=== PATIENT | female | born 1980 ===

== ENCOUNTER 2017-07-05 16:08 | Emergency (ER) | payer OTHER ==
[2017-07-05] MEDS ORDERED: Dexamethasone 4 mg/1 ml IM STA (17:07)
[2017-07-05] MEDS ORDERED: Dexamethasone 4 mg/1 ml ONE (17:17)
--- NOTE | 2017-07-05 17:21 | C.PDOC ---
History Of Present Illness 37 year old female presents to the ED with back pain for a week. Patient states she has had no recent injuries or falls, but has a herniated disk. Associated symptoms are radiating pain down to the right leg. She denies any weakness, numbness, tingling, bowel or bladder dysfunction. Time Seen by Provider: 07/05/17 16:38 Chief Complaint (Nursing): Back Pain History Per: Patient Onset/Duration Of Symptoms: Days (1 Month), Persistent, Other (Radiating) Current Symptoms Are (Timing): Still Present Quality Of Discomfort: Aching Previous Symptoms: Back Pain Associated Symptoms: None. denies: Incontinence, New Weakness, New Numbness Exacerbating Factor(s): Movement, Sitting Recent travel outside of the [place]: No Past Medical History Reviewed: Historical Data, Nursing Documentation, Vital Signs Vital Signs: Last Vital Signs Temp 97.6 F 07/05/17 19:58 Pulse 87 07/05/17 19:58 Resp 16 07/05/17 19:58 BP 117/82 07/05/17 19:58 Pulse Ox 97 07/05/17 19:58 - Medical History PMH: No Chronic Diseases Surgical History: Cholecystectomy Family History: States: No Known Family Hx - Social History Hx Alcohol Use: No Hx Substance Use: No - Immunization History Hx Tetanus Toxoid Vaccination: No Hx Influenza Vaccination: No Review Of Systems Except As Marked, All Systems Reviewed And Found Negative. Genitourinary: Negative for: Dysuria, Incontinence, Hematuria Musculoskeletal: Positive for: Back Pain Neurological: Negative for: Weakness, Numbness Physical Exam - Physical Exam Appears: Non-toxic Skin: Normal Color, Warm, Dry, No Rash Head: Atraumatic, Normacephalic Eye(s): bilateral: Normal Inspection, PERRL, EOMI Ear(s): Bilateral: Normal Oral Mucosa: Moist Throat: No Erythema, No Exudate Neck: Normal ROM, Supple Chest: Symmetrical Cardiovascular: Rhythm Regular, No Friction Rub, No Murmur Respiratory: Normal Breath Sounds, No Wheezing Gastrointestinal/Abdominal: Normal Exam, Soft, No Tenderness Back: No CVA Tenderness, No Vertebral Tenderness, Paraspinal Tenderness ( bilateral) Extremity: Normal ROM, No Pedal Edema, No Deformity, No Swelling Neurological/Psych: Oriented x3, Normal Motor, Normal Sensation Gait: Steady ED Course And Treatment O2 Sat by Pulse Oximetry: 100 (RA) Pulse Ox Interpretation: Normal Medical Decision Making Medical Decision Making: IMPRESSION: Back Pain -- XR-- Lumber Spine --POC- Urine --Dexamethasone 8mg On re-exam, the patient reports improvement of symptoms. Lungs are CTA, heart is RRR, abdomen is soft, non-tender and tolerating Po well. Ambulatory in the ED with steady gait. Disposition - Disposition Referrals: [facility] [Outside] Disposition: HOME/ ROUTINE Disposition Time: 19:32 Condition: GOOD Additional Instructions: Follow up with the medical doctor within 1-2 days. Return if worsened Prescriptions: Cyclobenzaprine [Flexeril] 5 mg PO TID #21 tab Lidocaine 5% [Lidoderm] 1 each TP DAILY #10 patch Naproxen [Naprosyn] 500 mg PO BID #20 tab Instructions: Radiculopathy Forms: [employer] (Kyrgyz) Print Language: NAMIBIAN - Clinical Impression Clinical Impression: Low back pain - PA / INVENTORY AND PRICING ASSOCIATE / Resident Statement MD/DO has reviewed & agrees with the documentation as recorded. - Scribe Statement The provider has reviewed the documentation as recorded by the Scribe All medical record entries made by the Scribe were at my direction and personally dictated by me. I have reviewed the chart and agree that the record accurately reflects my personal performance of the history, physical exam, medical decision making, and the department course for this patient. I have also personally directed, reviewed, and agree with the discharge instructions and disposition.
[2017-07-05 19:59] VITALS: BP 117/82; PULSE 87; RESP 16; TEMP 97.6
--- NOTE | 2017-07-06 08:28 | RAD ---
PROCEDURE: Radiographs of the Lumbar Spine. HISTORY: Low back pain COMPARISON: No prior. FINDINGS: BONES: Normal alignment. No listhesis. No fracture. DISC SPACES: Unremarkable. OTHER FINDINGS: None. IMPRESSION: Unremarkable radiographs of the lumbar spine.
[2017-07-06 22:21] VITALS: O2SAT 100
== END 2017-07-05 19:57 | disposition home or self-care (01) ==
LOC: C.ER 16:08
DX: M54.5 Low back pain (principal)
CPT/HCPCS: 72100; 96372; 99284; J1100; J1885

== ENCOUNTER 2018-03-21 19:03 | Emergency (ER) | payer OTHER ==
[2018-03-21 21:00] LABS: HCG,QUALITATIVE URINE NEGATIVE (NEGATIVE)
[2018-03-21 21:04] LABS: SQUAMOUS EPITHIAL 29 /hpf (0-5); URINE BACTERIA FEW (<OCC); URINE BILIRUBIN NEGATIVE (NEGATIVE); URINE BLOOD 1+ (NEGATIVE); URINE CLARITY Hazy (Clear); URINE COLOR Amber (YELLOW); URINE GLUCOSE (UA) NORMAL (Normal); URINE LEUKOCYTE ESTERASE 2+ Leu/uL (Negative); URINE PROTEIN 2+ mg/dL (NEGATIVE)
--- NOTE | 2018-03-21 21:26 | C.PDOC ---
History Of Present Illness 38 y/o female presents c/o Fever and vomiting x 10 for the past 2 days. She has taken Advil with not much relief. She has associated mayalgia mainly in the lower back and headache. She denies diarrhea, cough, and chest pain. She denies sick contacts. She admits to increase frequency of urination and dysuria. <Yousif Mccoy - Last Filed: 03/21/18 23:31> History Per: Patient Onset/Duration Of Symptoms: Persistent Current Symptoms Are (Timing): Still Present Location Of Pain: Other (Back) Sick Contacts (Context): None Associated Symptoms: Myalgias, Vomiting Severity: Moderate Pain Scale Rating Of: 7 Recent travel outside of the [place]: No <Yousif Mccoy - Last Filed: 03/21/18 23:31> <Andrea Alanis DO - Last Filed: 03/22/18 00:25> Time Seen by Provider: 03/21/18 20:51 Chief Complaint (Nursing): Fever Past Medical History Reviewed: Historical Data, Nursing Documentation, Vital Signs Vital Signs: Last Vital Signs Temp 102.7 F H 03/21/18 19:25 Pulse 117 H 03/21/18 19:25 Resp 24 03/21/18 19:25 BP 116/78 03/21/18 19:25 Pulse Ox 100 03/21/18 19:25 - Medical History PMH: No Chronic Diseases Surgical History: Cholecystectomy, Family History: States: No Known Family Hx - Social History Hx Alcohol Use: No Hx Substance Use: No - Immunization History Hx Tetanus Toxoid Vaccination: No Hx Influenza Vaccination: No <Yousif Mccoy - Last Filed: 03/21/18 23:31> Vital Signs: Last Vital Signs Temp 98.8 F 03/21/18 23:46 Pulse 92 H 03/21/18 23:46 Resp 16 03/21/18 23:46 BP 108/62 03/21/18 23:46 Pulse Ox 100 03/22/18 00:01 <Andrea Alanis DO - Last Filed: 03/22/18 00:25> Review Of Systems Except As Marked, All Systems Reviewed And Found Negative. Constitutional: Positive for: Fever, Malaise. Negative for: Chills Cardiovascular: Negative for: Chest Pain Respiratory: Negative for: Cough Gastrointestinal: Positive for: Nausea, Vomiting Genitourinary: Positive for: Dysuria, Frequency, Pelvic Pain Musculoskeletal: Positive for: Back Pain <Yousif Mccoy - Last Filed: 03/21/18 23:31> Physical Exam - Physical Exam Appears: Non-toxic, No Acute Distress Skin: Normal Color, Warm Head: Atraumatic, Normacephalic, Tenderness Eye(s): bilateral: Normal Inspection Ear(s): Bilateral: Normal Nose: Normal Throat: Normal, No Erythema Neck: Normal, Supple Lymphatic: Adenopathy Cardiovascular: Rhythm Regular Respiratory: Normal Breath Sounds Gastrointestinal/Abdominal: Soft, No Guarding Back: CVA Tenderness (L>R) <Yousif Mccoy - Last Filed: 03/21/18 23:31> ED Course And Treatment - Laboratory Results Result Diagrams: 03/21/18 21:32 03/21/18 21:32 Lab Results: Urine Color Kiley (YELLOW) 03/21/18 20:41 Urine Clarity Hazy (Clear) 03/21/18 20:41 Urine pH 6.0 (5.0-8.0) 03/21/18 20:41 Ur Specific [place] 1.020 (1.003-1.030) 03/21/18 20:41 Urine Protein 2+ mg/dL (NEGATIVE) H 03/21/18 20:41 Urine Glucose (UA) Normal mg/dL (Normal) 03/21/18 20:41 Urine Ketones 1+ mg/dL (NEGATIVE) H 03/21/18 20:41 Urine Blood 1+ (NEGATIVE) H 03/21/18 20:41 Urine Nitrate Positive (NEGATIVE) H 03/21/18 20:41 Urine Bilirubin Negative (NEGATIVE) 03/21/18 20:41 Urine Urobilinogen 2.0 mg/dL (0.2-1.0) H 03/21/18 20:41 Ur Leukocyte Esterase 2+ Bisi/uL (Negative) H 03/21/18 20:41 Urine WBC (Auto) 257 /hpf (0-5) H 03/21/18 20:41 Urine RBC (Auto) 8 /hpf (0-3) H 03/21/18 20:41 Ur Squamous Epith Cells 29 /hpf (0-5) H 03/21/18 20:41 Urine Bacteria Few (<OCC) H 03/21/18 20:41 Urine HCG, Qual Negative (NEGATIVE) 03/21/18 20:41 Urine HCG, Qual Negative (NEGATIVE) 03/21/18 20:41 Urine POC: Negative O2 Sat by Pulse Oximetry: 100 Progress Note: Tylenol given at Triage due to temp of 102; IV hydration; Toradol given; Labs reviewed- high WBC 14.3; Urinalysis revealed high WBC count 257; CT abdomen and pelvis scan ordered revealing cystitis and pyelonephritis Reevaluation Time: 22:07 (temp 99.0 F; patient pain has improved) Reassessment Condition: Improved <NadineYousif - Last Filed: 03/21/18 23:31> - Laboratory Results Result Diagrams: 03/21/18 21:32 03/21/18 21:32 Lab Results: Total Bilirubin 1.3 mg/dL (0.2-1.3) 03/21/18 21:32 AST 37 U/L (14-36) H D 03/21/18 21:32 ALT 43 U/L (9-52) 03/21/18 21:32 Alkaline Phosphatase 78 U/L (38-126) 03/21/18 21:32 Total Protein 7.8 g/dL (6.3-8.3) 03/21/18 21:32 Albumin 4.4 g/dL (3.5-5.0) 03/21/18 21:32 Globulin 3.4 gm/dL (2.2-3.9) 03/21/18 21:32 Albumin/Globulin Ratio 1.3 (1.0-2.1) 03/21/18 21:32 Urine Color Kiley (YELLOW) 03/21/18 20:41 Urine Clarity Hazy (Clear) 03/21/18 20:41 Urine pH 6.0 (5.0-8.0) 03/21/18 20:41 Ur Specific [place] 1.020 (1.003-1.030) 03/21/18 20:41 Urine Protein 2+ mg/dL (NEGATIVE) H 03/21/18 20:41 Urine Glucose (UA) Normal mg/dL (Normal) 03/21/18 20:41 Urine Ketones 1+ mg/dL (NEGATIVE) H 03/21/18 20:41 Urine Blood 1+ (NEGATIVE) H 03/21/18 20:41 Urine Nitrate Positive (NEGATIVE) H 03/21/18 20:41 Urine Bilirubin Negative (NEGATIVE) 03/21/18 20:41 Urine Urobilinogen 2.0 mg/dL (0.2-1.0) H 03/21/18 20:41 Ur Leukocyte Esterase 2+ Bisi/uL (Negative) H 03/21/18 20:41 Urine WBC (Auto) 257 /hpf (0-5) H 03/21/18 20:41 Urine RBC (Auto) 8 /hpf (0-3) H 03/21/18 20:41 Ur Squamous Epith Cells 29 /hpf (0-5) H 03/21/18 20:41 Urine Bacteria Few (<OCC) H 03/21/18 20:41 Urine HCG, Qual Negative (NEGATIVE) 03/21/18 20:41 Urine HCG, Qual Negative (NEGATIVE) 03/21/18 20:41 <Andrea Alanis DO - Last Filed: 03/22/18 00:25> Medical Decision Making Medical Decision Making: A/P: Cysitis and Pyelonephritis -start Cipro 500mg BID x 14 days - start Zofran - continue Advil PRN fever <Yousif Mccoy - Last Filed: 03/21/18 23:31> Disposition <Yousif Mccoy - Last Filed: 03/21/18 23:31> - Disposition Disposition Time: 23:00 <Andrea Alanis DO - Last Filed: 03/22/18 00:25> - Disposition Referrals: [facility] [Outside] [facility] [Outside] Disposition: HOME/ ROUTINE Condition: IMPROVED Additional Instructions: JESSI JOHN, thank you for letting us take care of you today. The emergency medical care you received today was directed at your acute symptoms. If you were prescribed any medication, please fill it and take as directed. It may take several days for your symptoms to resolve. Return to the Emergency D epartment if your symptoms worsen, do not improve, or if you have any other problems. Please contact your doctor or call one of the physicians/clinics you have been referred to that are listed on the Patient Visit Information form that is included in your discharge packet. Bring any paperwork you were given at discharge with you along with any medications you are taking to your follow up visit. Our treatment cannot replace ongoing medical care by a primary care provider outside of the emergency department. Thank you for allowing the [facility] team to be part of your care today. Follow up with our clinic in 5-7 days for re-evaluation and further management. Prescriptions: Ciprofloxacin [Cipro] 500 mg PO BID #28 tab Ibuprofen [Motrin] 600 mg PO Q6 PRN #20 tab PRN Reason: Pain, Moderate (4-7) Ondansetron ODT [Zofran ODT] 4 mg PO Q8 PRN #20 odt PRN Reason: Nausea/Vomiting Instructions: Kidney Infection (DC) Forms: [employer] - It's what's in store (Korean) - Clinical Impression Clinical Impression: Pyelonephritis
[2018-03-21] MEDS ORDERED: Sodium Chloride 0.9% 1,000 ML IV ONE (21:30)
[2018-03-21 21:35] LABS: BASO % 0.3 % (0.0-2.0); HEMOGLOBIN 13.1 g/dL (11.0-16.0); LYMPH # 0.9 K/uL (1.0-4.3); LYMPH % 6.6 % (20.0-40.0); MEAN CELL VOLUME 87.2 fL (81.0-99.0); MEAN CORPUSCULAR HEMOGLOBIN 29.1 pg (27.0-31.0); MEAN CORPUSCULAR HGB CONC 33.4 g/dL (33.0-37.0); MONO # 1.2 K/uL (0.0-0.8); MONO % 8.7 % (0.0-10.0); NEUT # 12.1 K/uL (1.8-7.0); NEUT % 84.4 % (50.0-75.0); PLATELET COUNT 315 K/uL (130-400); RBC 4.49 Mil/uL (3.80-5.20); RED CELL DISTRIBUTION WIDTH 12.4 % (11.5-14.5); WHITE BLOOD COUNT 14.3 K/uL (4.8-10.8)
[2018-03-21 21:47] LABS: ALB/GLOB RATIO 1.3 (1.0-2.1); ALBUMIN 4.4 g/dL (3.5-5.0); ALT/SGPT 43 U/L (9-52); AST/SGOT 37 U/L (14-36); BLOOD UREA NITROGEN 14 mg/dL (7-17); CALCIUM 8.7 mg/dl (8.6-10.4); GFR NON-AFRICAN AMERICAN > 60
[2018-03-21] MEDS ORDERED: Sodium Chloride 0.9% 1,000 ML ONE (21:48)
[2018-03-21 21:53] VITALS: RESP 16
[2018-03-21] MEDS ORDERED: Iodixanol 320 MG/ML 100 ML BOTTLE IV ONE (22:04)
[2018-03-21 22:19] LABS: BANDS 1 % (0-2); LYMPHOCYTE 7 % (20-40); MONOCYTE 5 % (0-10); NEUTROPHIL 87 % (50-75); PLATELET ESTIMATE NORMAL (NORMAL); TOTAL CELLS COUNTED 100
[2018-03-21 23:47] VITALS: BP 108/62; PULSE 92; TEMP 98.8
[2018-03-21 23:48] VITALS: O2SAT 100
--- NOTE | 2018-03-22 07:27 | CT ---
CT abdomen and pelvis HISTORY: Abdominal pain. Left flank pain. COMPARISON: None available. TECHNIQUE: Multiple contiguous axial images were performed through the abdomen and pelvis with the use of intravenous contrast. Subsequently, sagittal and coronal reformatted images were obtained. FINDINGS: Emphysematous bleb seen within the lateral aspect of the right lobe measuring 1.6 centimeters on series 3, image 9. Atelectasis at the lung bases. No pleural or pericardial effusion. Liver is preserved. Contracted and or resected gallbladder. Spleen is preserved. Adrenal glands are preserved. Pancreas is preserved. Upper abdominal bowel is preserved. Right kidney: No calculi or hydronephrosis. Left Kidney: Perinephric fat stranding. Scattered areas of peripheral low attenuation suggestive for pyelonephritis. No gross hydronephrosis. Underdistended and mildly thick-walled urinary bladder. Heterogeneous uterus and bilateral adnexa. Fecal retention in the colon. Appendix not well visualized. Few shotty para-aortic and inguinal lymph nodes. Few shotty mesenteric lymph nodes. Small fat containing umbilical hernia. Reticulation in the bilateral gluteal regions with calcification noted in the left gluteal region. Degenerative changes in the spine. Multiple subchondral cystic foci seen within the bilateral acetabulum. Clinical correlation. Impression: Findings concerning for acute pyelonephritis of the left kidney. Mild thickening of the urinary bladder which may represent an underlying cystitis. Clinical correlation. Additional findings as above. A preliminary report was generated at 11:08 p.m. on 03/21/[address] Andrea Camacho from [employer].
== END 2018-03-21 23:50 | disposition home or self-care (01) ==
LOC: C.ER 19:03
DX: N12 Tubulo-interstitial nephritis, not specified as acute or chronic (principal)
CPT/HCPCS: 74177; 80053; 81001; 84703; 85025; 87086; 87804; 96361; 96374; 99285; J1885; J7030; Q9967